=== PATIENT | female | born 2000 | race Caucasian/White ===

== ENCOUNTER 2022-08-28 11:25 | Emergency (ER) | payer OTHER, SELFPAY ==
[2022-08-28 11:26] VITALS: BP 136/86; PULSE 76; RESP 14; TEMP 36.1; O2SAT 100; BMI 41.4
--- NOTE | 2022-08-28 12:36 | US_ITS ---
PROCEDURE: ULTRASOUND OF THE FEMALE PELVIS - COMPLETE REASON FOR EXAM: Female, 22 years old. RLQ abd pain x 5 days TECHNIQUE: Transvaginal TECHNICAL QUALITY: Adequate. COMPARISON: None. FINDINGS: The uterus is anteverted and is in a midline position. The uterus measures 7.2 x 4.9 x 3.6 cm. There is no demonstrated myometrial mass. The endometrium measures 7 mm in thickness, and is hyperechoic. There is no demonstrated endometrial mass. Normal uterine cervix. The right ovary is visualized. The right ovary measures 6.3 x 6.8 x 5.6 cm. A large debris-filled avascular right ovarian cyst is present measuring 5.8 x 6.2 x 4.9 cm, compatible with a hemorrhagic cyst. There is no visualized right adnexal mass or complex lesion. The left ovary is visualized. The left ovary measures 3.3 x 2.7 x 1.3 cm. There is no left ovarian cyst or ovarian mass. There is no visualized left adnexal mass or complex lesion. Normal color vascular flow and Doppler signal is demonstrated in both ovaries. There is minimal fluid in the cul-de-sac. US/Transvaginal Non- IMPRESSION: 1. Large 5.8 x 6.2 x 4.9 cm right ovarian hemorrhagic cyst Electronically Signed: Juan José Rojas MD at 14:14 EST ,
[2022-08-28 12:47] LABS: Absolute Lymphocyte Count 1.74 X10^3/uL (0.83-4.51); Absolute Neutrophil Count 5.5 X10^3/uL (2.0-7.7); Basophil# 0.03 X10^3/uL; Basophil% 0.4 % (0-1); Eosinophil# 0.04 X10^3/uL; Eosinophils% 0.5 % (0-5); Hematocrit 40.8 % (37-47); Hemoglobin 13.8 g/dL (12.0-15.0); Lymphocyte # 1.74 X10^3/ul (0.83-4.51); Lymphocyte % 22.3 % (19-41); Mean Corp Hgb Conc 33.8 g/dL (32-36); Mean Corpuscular Hgb 31.4 pg (27.0-32.0); Mean Corpuscular Volume 92.7 fL (81-99); Mean Platelet Vol. 8.9 fl (6.2-12.0); Monocyte# 0.51 X10^3/uL; Monocyte% 6.5 % (0-10); NRBC Flagged by Analyzer 0 % (0-5); Neutrophil # 5.45 X10^3/uL (2.7-7.7); Platelet Count 288 K/mm3 (150-450); RBC Distribution Width CV 12.2 % (11.6-14.6); RBC Distribution Width SD 41.6 fl (35.1-43.9); White Blood Count 7.8 K/mm3 (4.4-11.0)
--- NOTE | 2022-08-28 12:52 | CM.ED ---
SW Note Referral Source: Case Find Referral Reason: No Primary Care Physician (PCP) SW reviewed chart and noted that patient has no PCP. SW provided patient with list of [facility] Physician List for reference. No other issues or concerns voiced at this time. SW remains available for any additional needs. Plan: Provided patient with PCP information Haritha JAIN
[2022-08-28 12:57] LABS: Bacteria 0 SEEN /hpf (None Seen); Mucous, Urine 0 SEEN /hpf (<or=2+); Red Blood Cells-Urine 0 SEEN /hpf (0-5); White Blood Cells 0 SEEN /hpf (0-5)
[2022-08-28 13:01] LABS: ALB/GLOB Ratio 1.2 RATIO (0.9-2.4); AST(SGOT) 49 U/L (15-37); Alanine Aminotransfer ALT/SGPT 97 U/L (13-56); Albumin, Serum 4.1 g/dL (3.2-5.0); Alkaline Phosphatase 76 U/L (45-117); Anion Gap 6 (5-15); BUN 6 mg/dL (7-18); Calcium,Total 9.4 mg/dL (8.5-10.1); Chloride 109 mmol/L (98-107); Creatinine, Serum 0.75 mg/dL (0.55-1.02); EST Glomerular Filtration Rate 104 mL/min (>60); Est Glom Filt Rate - Afr Amer 126 mL/min (>60); Estimated Creatinine Clearance 112.01 ml/min; Globulin 3.5 g/dL (2.2-4.2); Glucose 92 mg/dL (74-106); Protein, Total 7.6 g/dL (6.4-8.2); Sodium Level 141 mmol/L (136-145)
[2022-08-28 13:26] VITALS: RESP 16
[2022-08-28 13:35] LABS: Color, Urine Straw (Yellow); Glucose, Dipstick Normal (Normal); Ketone-Dipstick Negative (Negative); Leukocyte Esterase-Dipstick Negative /ul (Negative); Nitrite-Dipstick Negative (Negative); Occult Blood-Urine Negative /ul (Negative); Protein-Dipstick Negative (Negative); Specific Gravity, Urine 1.005 (1.002-1.030); Urine Bilirubin Dipstick Negative (Negative); Urine Clarity Clear (Clear); Urine Urobilinogen Normal (Normal)
[2022-08-28 13:46] LABS: Internal QC Validated? YES +Cl - CLEAR BKGD; Pregnancy, Urine Negative Negative; Squamous Epithelial Cells - UA 0-5 SEEN /hpf (5-10)
[2022-08-28 15:00] VITALS: RESP 16
--- NOTE | 2022-08-28 15:02 | EDS_ITS ---
HPI HPI - GI History of Present Illness Chief Complaint: Abd Pain Informant: patient Narrative Narrative: Patient is a 22-year-old female presenting with 4 to 5 days of right lower quadrant abdominal pain. She was at [facility] who was concerned they could not really do anything for her to evaluated besides doing abdominal exams they recommend she come to the emergency room. Patient states the pain started either Friday night or Friday sequins stringer. Does not radiate. It feels like a menstrual cramp which is never had 1 lasting long. She is doing worse when she is bending over, walking or sitting. She not take anything for symptoms. She was supposed to get her. Last week but did she recently switched control brands and did not get it. She denies any urinary symptoms such as dysuria or frequency but notes that she does have increased lower abdominal pain when she urinates. She denies any abnormal vaginal discharge. She is not concerned for . Denies any other complaints at this time. 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 She notes that she follows with Dariela Winters for [facility] [employer] and has an appointment in 2 weeks to see her. PFSH PFSH Medical History no medical history Home Medications iron 18 mg tablet 18 mg PO DAILY 10/26/20 [History Last Taken Unknown] esomeprazole magnesium 20 mg capsule,delayed release 20 mg PO DAILY 06/25/22 [History Last Taken Unknown] norethindrone (contraceptive) 0.35 mg tablet ([facility]) 0.35 mg PO DAILY #84 tabs 07/23/22 [Rx Last Taken Unknown] Allergy/AdvReac Type Severity Reaction Status Date / Time No Known Allergies Allergy Verified 08/28/22 11:26 Surgical History S/P wisdom tooth extraction Surgical History no surgical history Social History household members: family current occupational status: student current occupation: [employer] - Senior history of recent travel: No sexually active: No Smoking Status: Never smoker alcohol intake: never substance use type: does not use what type of physical activity do you participate in: walking frequency: 1-2 times per week seatbelt use: always do you feel safe at home: Yes additional social history: single ROS ROS ED Constitutional Constitutional ED: Denies chills or fever(s) Respiratory/Chest Respiratory/Chest: Denies cough Gastrointestinal Gastrointestinal: Reports abdominal pain; Denies constipation, diarrhea, nausea or vomiting Genitourinary Genitourinary ED: Denies dysuria, hematuria or urinary frequency Musculoskeletal Musculoskeletal: Denies arthralgias or myalgias Integumentary Denies rash Neurologic Neurologic: Denies headache(s) Hematologic/Lymphatic Hematologic/Lymphatic: Denies easy bleeding or easy bruising EXAM Physical Exam Const Vital Signs: 08/28/22 11:26 08/28/22 13:26 Temperature 97 F L Temperature Source Temporal Pulse Rate 76 Respiratory Rate 14 16 Blood Pressure 136/86 H Blood Pressure Mean 102 Pulse Ox 100 Oxygen Delivery Method Room Air Positive well nourished and well developed General Appearance ED: well developed and NAD HEENT Reports moist mucous membranes Eyes PERRL and EOMs intact bilaterally Neck supple Resp normal respiratory effort and clear to auscultation bilaterally Cardio regular rate, regular rhythm and no murmurs GI non-tender and non-distended GI Narrative: Patient points to her right lower quadrant in the area where the pain is but does not currently have any pain with palpation Auscultation: normoactive bowel sounds Palpation: soft; Negative for tender, guarding or rigid Neuro moves all extremities Sensorium / Orientation: alert Motor Exam: Negative for general weakness Skin no wounds MDM MDM MDM Narrative Medical decision making narrative: Patient evaluated for 4 to 5 days of right lower quadrant abdominal pain. Vital signs are normal. Physical exam is benign. No peritoneal signs. She ate breakfast today and continues have an appetite. She is quite well-appearing for 5 days of right lower quad abdominal pain and I do not think this is an appendicitis. CBC is normal. Differential does include ovarian torsion, ovarian cyst, pyelonephritis and renal colic. CBC is normal with a normal hemoglobin of 13.8. CMP shows mild transaminitis with an AST of 49 and an ALT of 97 however bilirubin is normal she does not have any pain in her right upper quadrant on exam. Urinalysis is normal not consistent with infection or kidney stone. Transvaginal ultrasound to evaluate for ovarian pathology is obtained and it does show a large right ovarian hemorrhagic cyst. I suspect this is the cause of her pain. I do not see signs of torsion at this time. Clinically patient is not acting like ovarian torsion. She is counseled on signs and symptoms of an ovarian torsion should she develop 1. She is encouraged to follow-up with her primary care doctor. She is informed of her mild transaminitis as well. I did speak with [employer] on-call for [facility], who will try to arrange closer follow-up as patient does not have an appointment for the 2 weeks. Patient ambulates to the emergency room easily. Is given return precautions. Is instructed to alternate ibuprofen and Tylenol as needed for pain. She does not require prescription for this at this time. Patient is given referral for primary care doctor as she does not currently have 1. Lab Data Labs: Laboratory Results - last 24 hr 08/28/22 08/28/22 08/28/22 12:30 12:30 12:50 WBC 7.8 RBC 4.40 Hgb 13.8 Hct 40.8 MCV 92.7 MCH 31.4 MCHC 33.8 RDW Std Deviation 41.6 RDW Coeff of Norris 12.2 Plt Count 288 MPV 8.9 Immature Gran % (Auto) 0.300 Neut % (Auto) 70.0 Lymph % (Auto) 22.3 Lamb % (Auto) 6.5 Eos % (Auto) 0.5 Baso % (Auto) 0.4 Absolute Neuts (auto) 5.5 Absolute Lymphs (auto) 1.74 Nucleated RBC % 0 Sodium 141 Potassium 4.0 Chloride 109 H Carbon Dioxide 26.0 Anion Gap 6 BUN 6 L Creatinine 0.75 Estim Creat Clear Calc 112.01 Est GFR (MDRD) Af Amer 126 Est GFR (MDRD) Non-Af 104 BUN/Creatinine Ratio 8.0 L Glucose 92 Calcium 9.4 Total Bilirubin 0.60 AST 49 H ALT 97 H Alkaline Phosphatase 76 Total Protein 7.6 Albumin 4.1 Globulin 3.5 Albumin/Globulin Ratio 1.2 Urine Color Straw Urine Clarity Clear Urine pH 7.0 Ur Specific Hammond 1.005 Urine Protein Negative Urine Glucose (UA) Normal Urine Ketones Negative Urine Occult Blood Negative Urine Nitrite Negative Urine Bilirubin Negative Urine Urobilinogen Normal Ur Leukocyte Esterase Negative Urine RBC 0 SEEN Urine WBC 0 SEEN Ur Squamous Epith Cells 0-5 SEEN Urine Bacteria 0 SEEN Urine Mucus 0 SEEN Urine Test Negative Radiography Diagnostic Testing: Clinical Impression(s) from Imaging Studies Transvaginal US 08/28/22 12:36 IMPRESSION: 1. Large 5.8 x 6.2 x 4.9 cm right ovarian hemorrhagic cyst Electronically Signed: Juan José Rojas MD at 14:14 EST , Management Discussion w/another healthcare provider: Ekg/Ecg Technician (OBGYN- will arrange for close outpatient follow-up) Discharge Plan Triage Chief Complaint: Abd Pain ED Provider: Silvia Bautista Dx/Rx/DC Orders Clinical Impression: Hemorrhagic cyst of right ovary, Abdominal pain, RLQ, Abnormal transaminases Instructions: ED Ovarian Cyst Prescriptions: No Action iron 18 mg tablet 18 mg PO DAILY esomeprazole magnesium 20 mg capsule,delayed release(DR/EC) 20 mg PO DAILY norethindrone (contraceptive) [Ortho [facility]] 0.35 mg tablet 0.35 mg PO DAILY Qty: 84 0RF Stand Alone Forms: ED Work / School Excuse Primary Care Provider: Care Physician,No Primary Referrals: Divine Hdz DO [Med Staff - Weigh Boss] - As Needed (for Primary Care follow up ) Care Physician,No Primary [Primary Care Provider] - Dariela Winters NP, [employer] [Med Staff - Adv Practice Prof] - (as scheduled ) Disposition Disposition: Home, Self Care
== END 2022-08-28 15:15 | disposition home or self-care (01) ==
PROVIDERS: Emergency Provider Emergency Medicine; Visit Provider Emergency Medicine
DX: N83.201 Unspecified ovarian cyst, right side (principal)
CPT/HCPCS: 76830; 80053; 81001; 81025; 85025; 99283

== ENCOUNTER → 2022-09-10 | Outpatient (CLI) | payer OTHER, SELFPAY ==
[2022-09-10 16:36] LABS: Absolute Lymphocyte Count 2.17 X10^3/uL (0.83-4.51); Absolute Neutrophil Count 5.2 X10^3/uL (2.0-7.7); Basophil# 0.03 X10^3/uL; Basophil% 0.4 % (0-1); Eosinophils% 1.3 % (0-5); Hematocrit 42.5 % (37-47); Hemoglobin 14.4 g/dL (12.0-15.0); Lymphocyte # 2.17 X10^3/ul (0.83-4.51); Lymphocyte % 27.2 % (19-41); Mean Corp Hgb Conc 33.9 g/dL (32-36); Mean Corpuscular Hgb 31.3 pg (27.0-32.0); Mean Corpuscular Volume 92.4 fL (81-99); Mean Platelet Vol. 9.1 fl (6.2-12.0); Monocyte# 0.48 X10^3/uL; NRBC Flagged by Analyzer 0 % (0-5); Neutrophil # 5.18 X10^3/uL (2.7-7.7); Neutrophil % 64.7 % (47-70); Platelet Count 310 K/mm3 (150-450); RBC Distribution Width CV 12.3 % (11.6-14.6); RBC Distribution Width SD 41.6 fl (35.1-43.9)
[2022-09-10 16:58] LABS: ALB/GLOB Ratio 1.2 RATIO (0.9-2.4); AST(SGOT) 47 U/L (15-37); Alanine Aminotransfer ALT/SGPT 120 U/L (13-56); Albumin, Serum 4.3 g/dL (3.2-5.0); Alkaline Phosphatase 80 U/L (45-117); Anion Gap 8 (5-15); BUN 11 mg/dL (7-18); BUN/Creat Ratio 14.6 RATIO (10-20); Calcium,Total 9.5 mg/dL (8.5-10.1); Chloride 105 mmol/L (98-107); Creatinine, Serum 0.76 mg/dL (0.55-1.02); EST Glomerular Filtration Rate 103 mL/min (>60); Est Glom Filt Rate - Afr Amer 125 mL/min (>60); Globulin 3.7 g/dL (2.2-4.2); Glucose 84 mg/dL (74-106); Iron 57 ug/dL (50-170); Iron Binding Capacity,Total 403 ug/dL (250-450); PERCENT IRON SATURATION 14.1 % (15.0-55.0); Potassium 4.4 mmol/L (3.5-5.1); Sodium Level 138 mmol/L (136-145); Thyroid Stim Hormone (TSH) 1.31 uIU/mL (0.358-3.74)
== END | disposition home or self-care (01) ==
LOC: BIMLAB 15:34
PROVIDERS: PCP Internal Medicine; Referring Provider Internal Medicine; Visit Provider Internal Medicine
DX: G43.709 Chronic migraine without aura, not intractable, without status migrainosus (principal); N94.6 Dysmenorrhea, unspecified
CPT/HCPCS: 36415; 80053; 83540; 83550; 84443; 85025

== ENCOUNTER → 2022-10-04 | Outpatient (CLI) | payer OTHER, SELFPAY ==
--- NOTE | 2022-10-04 15:11 | US_ITS ---
STUDY: ULTRASOUND OF THE FEMALE PELVIS - COMPLETE REASON FOR EXAM: Female, 22 years old. Ovarian cyst. LMP: August,. Patient on constant BCP. TECHNIQUE: Transabdominal and Transvaginal TECHNICAL QUALITY: Adequate. COMPARISON: August 28, 2022. FINDINGS: The uterus is anteverted and is tilted to the left side of the pelvis. The uterus measures 6.8 x 5.4 x 3.1 cm. Normal uterine cervix. The endometrium measures 3 mm in thickness, and is hyperechoic. There is no demonstrated endometrial mass. There is no demonstrated myometrial mass. I.U.D. - The patient does not have an I.U.D. The right ovary is visualized. The right ovary measures 8.3 x 6.3 x 6.5 cm. There is an 8.0 x 5.9 x 6.1 cm simple ovarian cyst. There is no visualized right adnexal mass or complex lesion. There is normal arterial and normal venous vascularity. The left ovary is visualized. The left ovary measures 1.5 x 2.6 x 2.2 cm. There are multiple follicles of the left ovary without a dominant cyst. There is no visualized left adnexal mass or complex lesion. There is normal arterial and normal venous vascularity. There is minimal fluid in the cul-de-sac. The pre void volume of the bladder was 760 ml. The urinary bladder is grossly normal. Polycystic ovary disease: No. US/Pelvic w/ Transvaginal IMPRESSION: 1. Large right ovarian cyst. This appears essentially unchanged from previous study. 2. Normal uterus and left ovary. 3. Trace free fluid in the pelvis this is similar to prior study and is thought to be physiologic. Electronically Signed: Steven Hogan DO at 23:46 EDT ,
== END | disposition home or self-care (01) ==
LOC: US 15:09
PROVIDERS: PCP Internal Medicine; Referring Provider Nurse Practitioner Women's Health; Visit Provider Nurse Practitioner Women's Health
DX: N83.209 Unspecified ovarian cyst, unspecified side (principal)
CPT/HCPCS: 76830; 76856

== ENCOUNTER → 2022-10-05 | Outpatient (CLI) | payer OTHER, SELFPAY ==
--- NOTE | 2022-10-05 08:58 | US_ITS ---
INDICATION: ELEV LIVER ENZ EXAMINATION: Ultrasound US Abdomen RUQ (limited) TECHNIQUE: Jennings-scale and color Doppler imaging was performed of the abdomen. COMPARISON: None. FINDINGS: LIVER: There is increased echotexture. No focal hepatic lesion. No intrahepatic biliary ductal dilatation. There is no free fluid. GALLBLADDER AND BILIARY TREE: No shadowing gallstone, pericholecystic fluid or gallbladder wall thickening is demonstrated. The proximal common bile duct measures 3 mm, which is within normal limits for the patient''s age. SONOGRAPHIC LIGHT''S SIGN: Negative. PANCREAS: No focal abnormality is demonstrated in the pancreas. No pancreatic ductal dilatation. SPLEEN: The spleen is normal in size and homogeneous in echotexture. Right kidney: There is no hydronephrosis. No shadowing calculus, focal lesion, or perinephric collection is demonstrated. VESSELS: Submitted longitudinal images of the intra-abdominal aorta demonstrate no gross abnormalities and are unremarkable. The IVC is patent. US/Abdomen Limited IMPRESSION: Fatty liver. Electronically Signed: Selvin Morales MD, CHRISTA at 9:49 EDT ,
== END | disposition home or self-care (01) ==
LOC: US 08:58
PROVIDERS: PCP Internal Medicine; Referring Provider Internal Medicine; Visit Provider Internal Medicine
DX: R74.8 Abnormal levels of other serum enzymes (principal)
CPT/HCPCS: 76705

== ENCOUNTER → 2022-11-11 | Outpatient (CLI) | payer OTHER, SELFPAY ==
--- NOTE | 2022-11-11 12:37 | US_ITS ---
STUDY: ULTRASOUND OF THE FEMALE PELVIS - COMPLETE REASON FOR EXAM: Female, 22 years old. Pelvic pain/ovarian cyst LMP: October 30, 2022. TECHNIQUE: Transabdominal and Transvaginal TECHNICAL QUALITY: Adequate. COMPARISON: Comparison is made with prior study October 04, 2022. FINDINGS: The uterus is anteverted and is tilted to the left side of the pelvis. The uterus measures 7.6 x 4.5 cm x 3 cm. Normal uterine cervix. The endometrium measures 2.0 mm in thickness, and is heterogeneous (striated). There is no demonstrated endometrial mass. There is no demonstrated myometrial mass. I.U.D. - The patient does not have an I.U.D. The right ovary is visualized. The right ovary measures 3.2 cm x 2.3 cm x 2.2 cm. A dominant follicle is seen measuring 2.1 cm x 1.5 cm x 1.2 cm. This has decreased in size as compared to prior study. There is no visualized right adnexal mass or complex lesion. There is normal arterial and normal venous vascularity. The left ovary is visualized. The left ovary measures 3.7 cm x 2.9 cm x 3 cm. There is a 3 cm x 2 cm x 2.4 solid left ovarian cyst. There is no visualized left adnexal mass or complex lesion. There is normal arterial and normal venous vascularity. There is minimal fluid in the cul-de-sac. The pre void volume of the bladder was 733 ml. The post void volume of the bladder was ml. US/Pelvic w/ Transvaginal IMPRESSION: Interval decrease in size of the right ovarian cyst. 3 cm by 2 cm x 2.4 cm left ovarian cyst. Electronically Signed: Remberto Hurst MD at 15:40 EDT ,
== END | disposition home or self-care (01) ==
LOC: US 12:36
PROVIDERS: PCP Internal Medicine; Referring Provider Obstetrics & Gynecology; Visit Provider Obstetrics & Gynecology
DX: N83.201 Unspecified ovarian cyst, right side (principal)
CPT/HCPCS: 76830; 76856

== ENCOUNTER → 2023-03-28 | Outpatient (CLI) | payer OTHER, SELFPAY ==
--- NOTE | 2023-03-28 12:17 | US_ITS ---
STUDY: ULTRASOUND OF THE FEMALE PELVIS - LIMITED REASON FOR EXAM: Female, 23 years old ovarian cyst f/u TECHNIQUE: Transabdominal and Transvaginal TECHNICAL QUALITY: Adequate. COMPARISON: Comparison is made with prior study dated November 11, 2022. FINDINGS: The uterus is retroflexed and is in a midline position. The uterus measures 7.2; x 4.2 x 2.9 cm. Normal uterine cervix. The endometrium measures 5 mm in thickness, and is heterogeneous (striated). There is no demonstrated endometrial mass. There is no demonstrated myometrial mass. The right ovary measures 4.1 cm x 3.8 cm x 2.3 cm. There is no right ovarian cyst or ovarian mass. There is no visualized right adnexal mass or complex lesion. There is normal arterial and normal venous vascularity. The left ovary measures 3.4 cm x 3 cm x 2.0 cm. There is no left ovarian cyst or ovarian mass. There is no visualized left adnexal mass or complex lesion. There is normal arterial and normal venous vascularity. There is minimal fluid in the cul-de-sac. US/Pelvic w/ Transvaginal IMPRESSION: Normal female pelvis. Electronically Signed: Remberto Hurst MD at 15:01 EDT ,
== END | disposition home or self-care (01) ==
LOC: US 12:15
PROVIDERS: PCP Internal Medicine; Referring Provider Obstetrics & Gynecology; Visit Provider Obstetrics & Gynecology
DX: N83.201 Unspecified ovarian cyst, right side (principal)
CPT/HCPCS: 76830; 76856

== ENCOUNTER → 2023-09-08 | Outpatient (CLI) | payer OTHER, SELFPAY ==
[2023-09-08 16:39] LABS: Absolute Lymphocyte Count 1.76 X10^3/uL (0.83-4.51); Absolute Neutrophil Count 6.4 X10^3/uL (2.0-7.7); Basophil# 0.03 X10^3/uL; Basophil% 0.3 % (0-1); Eosinophil# 0.08 X10^3/uL; Eosinophils% 0.9 % (0-5); Hematocrit 40.7 % (37-47); Hemoglobin 13.6 g/dL (12.0-15.0); Lymphocyte # 1.76 X10^3/ul (0.83-4.51); Lymphocyte % 20.1 % (19-41); Mean Corp Hgb Conc 33.4 g/dL (32-36); Mean Corpuscular Hgb 31.3 pg (27.0-32.0); Mean Corpuscular Volume 93.6 fL (81-99); Mean Platelet Vol. 9.3 fl (6.2-12.0); Monocyte# 0.48 X10^3/uL; Monocyte% 5.5 % (0-10); NRBC Flagged by Analyzer 0 % (0-5); Neutrophil # 6.39 X10^3/uL (2.7-7.7); Platelet Count 314 K/mm3 (150-450); RBC Distribution Width CV 12.3 % (11.6-14.6); Red Blood Count 4.35 M/mm3 (4.2-5.4); White Blood Count 8.8 K/mm3 (4.4-11.0)
[2023-09-08 16:53] LABS: ALB/GLOB Ratio 1.1 RATIO (0.9-2.4); AST(SGOT) 16 U/L (15-37); Alanine Aminotransfer ALT/SGPT 35 U/L (13-56); Albumin, Serum 4.1 g/dL (3.2-5.0); Alkaline Phosphatase 83 U/L (45-117); Anion Gap 5 (5-15); BUN 11 mg/dL (7-18); BUN/Creat Ratio 13.8 RATIO (10-20); Calcium,Total 8.9 mg/dL (8.5-10.1); Chloride 107 mmol/L (98-107); Cholesterol 166 mg/dL (200); EST Glomerular Filtration Rate 96 mL/min (>60); Est Glom Filt Rate - Afr Amer 116 mL/min (>60); Ferritin 74 ng/mL (8-252); Globulin 3.7 g/dL (2.2-4.2); Glucose 83 mg/dL (74-106); High Density Lipoprotein 52 mg/dL; Iron 52 ug/dL (50-170); Iron Binding Capacity,Total 373 ug/dL (250-450); Potassium 4.1 mmol/L (3.5-5.1); Protein, Total 7.8 g/dL (6.4-8.2); Sodium Level 139 mmol/L (136-145); Triglycerides 131 mg/dL; Very Low Density Lipoprotein 26 mg/dL (5-40)
== END | disposition home or self-care (01) ==
LOC: BIMLAB 14:44
PROVIDERS: PCP Internal Medicine; Referring Provider Nurse Practitioner; Visit Provider Nurse Practitioner
DX: N94.6 Dysmenorrhea, unspecified (principal); K76.0 Fatty (change of) liver, not elsewhere classified
CPT/HCPCS: 36415; 80053; 80061; 82728; 83540; 83550; 85025

== ENCOUNTER → 2024-06-16 | Outpatient (CLI) | payer OTHER, SELFPAY ==
[2024-06-24 10:13] LABS: HPV Reflexed? NOT INDICATED
== END | disposition home or self-care (01) ==
LOC: LABSPEC 11:01
PROVIDERS: PCP Internal Medicine; Referring Provider Nurse Practitioner Family; Visit Provider Nurse Practitioner Family
DX: Z12.4 Encounter for screening for malignant neoplasm of cervix (principal)
CPT/HCPCS: 88175; G0145